=== PATIENT | male | born 1960 | race Caucasian/White ===

== ENCOUNTER 2025-07-28 23:49 | Emergency (ER) | payer MEDICARE, SELFPAY ==
--- NOTE | ~2025-07-28 | XR_ITS ---
EXAMINATION: XR hand RT min 3V DATE: 07/29/2025 00:05 INDICATION: Right hand injury with swelling at the fifth digit TECHNIQUE: Posteroanterior, oblique and lateral views of the right hand were obtained. COMPARISON: None. FINDINGS: Oblique diaphyseal fracture of the right fifth metacarpal with 3 mm radial and 5 mm proximal displacement. The fracture is mildly comminuted with additional mildly displaced small fragment fragment along the distal margin of the fracture. No other fractures identified. Otherwise normal alignment throughout the remainder of the right hand. Chondrocalcinosis in the region of the triangular fibrocartilage complex and at the third metacarpophalangeal joint where there is moderate osteoarthritis which suggests this could be secondary to calcium pyrophosphate deposition (CPPD) disease. Additional moderate osteoarthritis at the triscaphe, first carpal metacarpal, first interphalangeal and fourth and fifth distal interphalangeal joints and mild osteoarthritis at the wrist and many of the remaining metacarpophalangeal and interphalangeal joints. IMPRESSION: 1. Mildly displaced and mildly comminuted oblique extra articular fracture of the right fifth metacarpal diaphysis. 2. 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 Reviewed, dictated and finalized at location A. IMPRESSION: 1. Mildly displaced and mildly comminuted oblique extra articular fracture of t he right fifth metacarpal diaphysis. 2. 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
[2025-07-28 23:49] VITALS: BP 172/84; PULSE 78; RESP 18; TEMP 36.6; O2SAT 95
--- OUTSIDE RECORDS SUMMARY | 2025-07-28 23:51 | XMS_ITS | Clinical Summary ---
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 Active tiZANidine (ZANAFLEX) 2 mg tablet TK 1 T PO BID 2 8 Active cholecalciferol (VITAMIN D-3) 2,000 unit tablet Active esomeprazole DR (NexIUM) 20 mg capsule Take 1 capsule (20 mg total) by mouth daily before breakfast Active ibuprofen (ADVIL,MOTRIN) 400 mg tabletIndicatio ns:takes a couple times per week Take 1 tablet (400 mg total) by mouth every 8 (eight) hours as needed for pain Active lisinopriL (PRINIVIL,ZESTR IL) 40 mg tablet Take 1 tablet (40 mg total) by mouth daily 3 Active carvediloL (COREG) 25 mg tablet 1 tablet (25 mg total) 2 in the morning and 1 at night 3 Active hydrALAZINE (APRESOLINE) 50 mg tablet Take 2 tablets (100 mg total) by mouth 2 (two) times a day 4 Active metFORMIN (GLUCOPHAGE) 1,000 mg tablet Take 1 tablet (1,000 mg total) by mouth 4 Active OXcarbazepine (TRILEPTAL) 150 mg tablet Take 1 tablet (150 mg total) by mouth 2 (two) times a day 180 tablet 3 5 Active Active Problems Problem Noted Date Diagnosed Date Chronic bilateral low back pain with bilateral s ciatica 10/21/2018 Chronic use of opiate for therapeutic purpose Spinal stenosis of lumbar re gion with neurogenic claudication 10/21/2018 Postlaminectomy syndrome 10/21/2018 Encounters Date Type Department Care Team Description 06/14/2025 9:13 AM CDT - 06/14/2025 11:59 PM CDT Hospital Encounter [facility] [address] [place] [address] [place], [place] [id number] Antonina Goodamn MD Chronic bilateral low back pain with bilateral sciatica (Primary Dx); Spinal stenosis of lumbar region with neurogenic claudication; Postlaminectomy syndrome Discharge Disposition: Discharge to home or self care from Last 3 Months Surgical History Surgery Date Site/Laterality Comments THROAT SURGERY Throat Surgery - (Added by Conv) APPENDECTOMY Appendectomy - (Added by Conv) INGUINAL HERNIA REPAIR Inguinal Hernia Repair - (Added by TW Conv) BACK SURGERY Back Surgery - (Added by TW Conv) Medical History Medical History Date Comments Personal history of other di seases of the circulatory system History of hypertension - (A dded by TW Conv) Personal history of other en docrine, nutritional and metabolic disease History of hypothyro idism - (Added by TW Conv) Personal history of other di seases of the nervous system and sense organs History of neuropa thy - (Added by TW Conv) Hypertension GERD (gastroesophageal reflux disease) Hypothyroidism Arthritis Chronic pain Low back pain Family History Medical History Relation Name Comments Heart disease Father Heart Disease - (Added by TW Conv) Hypertension Father Benign [facility] Hypertension - (Added by TW Conv) Lung cancer Maternal Grandmother Carcino ma Of The Lung - (Added by TW Conv) Migraines Mother Common Migraine (Without Aura) - (Added by TW Conv) Pancreatic cancer Mother Carcinoma Of The Pancreas - (Added by TW Conv) Cancer Other 1 Cancer - (Added by TW Conv) Diabetes Other 2 Diabetes Mellit us - (Added by TW Conv) Heart disease Other 3 Heart Disease - (Added by TW Conv) Hypertension Other 4 Hypertension - (Added by TW Conv) Stroke Paternal Grandmother Stroke Syndrome - (Added by TW Conv) Migraines Sister 1 Common Migraine (Without Aura) - (Added by TW Conv) Migraines Sister 2 Common Migraine (Without Aura) - (Added by TW Conv) Relation Name Status Comments Father Maternal Grandmother Mother Other 1 Other 2 Other 3 Other 4 Paternal Grandmother Sister 1 Sister 2 Social History Tobacco Use Types Packs/Day Years Used Date Smoking Tobacco: Never Smokeless Tobacco: Never Tobacco Cessation:Counseling Given: Not Answered Alcohol Use Standard Drinks/Week Comments No 0 (1 standard drink = 0.6 oz pur e alcohol) AUDIT-C Answer Date Recorded Q1: How often do you have a drink containing alc ohol? Never 07/22/2024 Average Number of Drinks Not on file 024 Frequency of Binge Drinking Not on file 12/2023 Hunger Vital Sign Answer Date Recorded Within the past 12 months, y ou worried that your food would run out before you got the money to buy more. Never true 06/14/20 25 Within the past 12 months, t he food you bought just didn't last and you didn't have money to get more. 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 Gender Identity Not on file Sexual Orientation Not on file Obstetrics History Last Filed Vital Signs Vital Sign Reading Time Taken Comments Blood Pressure 162/78 06/14/2025 9:38 AM CDT Pulse 73 06/14/2025 9:38 AM CDT Temperature 36.5 C (97.7 F) 06/14/2025 9:38 AM CDT Respiratory Rate 14 06/14/2025 9:38 AM CDT Oxygen Saturation 95% 06/14/2025 9:38 AM CDT Inhaled Oxygen Concentration - - Weight 138.3 kg (305 lb) 06/30/2023 4:14 PM CDT Height 177.8 cm (5' 10) 06/30/2023 4:14 PM CDT Body Mass Index 43.76 06/30/2023 4:14 PM CDT Plan of Treatment Health Maintenance Due Date Last Done Comments Colon Cancer Screening-Colonoscopy 1962 Depression Screening 1962 Hepatitis C Screening 1962 Prostate Cancer Screening-PSA 1962 DTaP/Tdap/Td Vaccine (1 - Tdap) 1973 Hepatitis B Screening 1980 Regular Well Visit/Exam 18-64 1980 Zoster Vaccine (1 of 2) 2012 Influenza Vaccine (#1) 2025 Pneumococcal vaccine <65 Aged Out No longer eligible based on patient's age to complete this topic Goals Goal Patient Goal Type Associated Problems Recent Progress Patient-Stated? Author CCM Chronic Pain Care Plan Chronic Care Management No change(06/14 9:42 AM CDT) No Joan Carney RN Note: Problem: Chronic Pain Goals: 1. Minimize further functional decline 2. Maximize quality of life 3. Control pain Strategies: - Activity/exercise program recommendation - Conservative stepwise pain medicine strategy with multi-disciplinary approach - Recommend healthy lifestyle strategies and compensatory methods as needed Insurance COMMERCIAL GENERIC MEDICARE [facility] COMMERCIAL GENERIC COMMERCIAL GENERIC * Guarantor: OTHER Account Type Relation to Patient Date of Phone Billing Address Workers Comp Employer [employer] Care Teams Diesel Dinkey Operator Relationship Specialty Start Date End Date Jamar Tomlinson DO PCP - General Internal Medicine 06/14/25
--- OUTSIDE RECORDS SUMMARY | 2025-07-28 23:51 | XMS_ITS | Clinical Summary ---
Author Organization [facility] Address [address] [place] [id number] Care Team Providers Care Vehicle Dismantler Name Role Phone Unavailable Primary Care Provider Unavailabl e Social History Tobacco Use Types Packs/Day Years Used Date Smoking Tobacco: Never Assessed Sex and Gender Information Value Date Recorded Sex Assigned at Not on file Legal Sex Male 6:50 PM CDT Gender Identity Not on file Sexual Orientation Not on file Plan of Treatment Health Maintenance Due Date Last Done Comments Colorectal Cancer Screening Colonoscopy (10 Years) 1962 Annual Physical 1965 Hepatitis C 1980 DTaP, Tdap and Td Vaccines ( 1 - Tdap) 1981 Pneumococcal Vaccine: 50+ Ye ars (1 of 1 - PCV) 2012 Zoster Vaccines (1 of 2) 2012 COVID-19 Vaccine (1 - 2023-2 5 season) 2025 Influenza Adult (#1) 2025 RSV Immunization or 60+ Years (1 - 1-dose 75+ series) 2037 Meningococcal B Vaccine Aged Out No l onger eligible based on patient's age to complete this topic Meningococcal Vaccine Aged Out No jerilyn mukesh eligible based on patient's age to complete this topic RSV Immunizations Under 20 Months Aged Out No longer eligible based on patient's age to complete this topic
--- NOTE | 2025-07-29 00:18 | ED.UPPEXIN ---
HPI - Extremity Injury (Upper) General Chief Complaint: Extremity Injury, Upper Stated Complaint: wellness check Time Seen by Provider: 07/28/25 23:58 Source: patient and family Mode of arrival: ambulatory Limitations: no limitations History of Present Illness HPI narrative: this is a 64-year-old male with history of diabetes hypertension presents after he had a fall earlier today and causing pain and swelling to the lateral aspect of his right hand has a spry brisk radial pulse on the right with no numbness or tingling current pain level about a 5/10 with some good range of motion in his fingers although hand is limited secondary to pain and swelling. No other injuries noted except abrasions to the right knee area patient up-to-date with his tetanus. complaint: injury to: right Onset (ago): hour(s) Other Extremity Injury: Right: hand ( lateral swelling and bruising) Handedness: right Place: home Severity: moderate Severity scale (1-10): 5 Relieving factors: none Exacerbating factors: movement of extremity Associated symptoms: denies other symptoms Related Data Home Medications ?Medication ?Instructions ?Recorded ?Confirmed ?Last Taken ?Type esomeprazole magnesium 20 mg 20 mg PO DAILY 11/23/19 04/08/25 Unknown History capsule,delayed release (Nexium 24HR) oxcarbazepine 150 mg tablet 150 mg PO TID 11/23/19 04/08/25 Unknown History Allergies Allergy/AdvReac Type Severity Reaction Status Date / Time levetiracetam Allergy Severe suicidal Verified 04/08/25 14:35 dreams, depression topiramate Allergy Severe bad anxiety Verified 04/08/25 14:35 baclofen Allergy Mild Unknown Verified 04/08/25 14:35 Penicillins Allergy Mild Unknown Verified 04/08/25 14:35 pregabalin Allergy Mild hair loss, Verified 04/08/25 14:35 ringing in ears gabapentin AdvReac Mild weight gain Verified 04/08/25 14:35 Review of Systems Review of Systems: All systems reviewed & are unremarkable except as noted in HPI and below PMFSH Past Medical History Medical History Essential (primary) hypertension Type 2 diabetes mellitus Family History Family History Mother Family history of pancreatic cancer, Onset Age: 54 Patient's mother is Father Patient's father is Social History Social History Smoking status: Never smoker Second hand tobacco smoke exposure: No Alcohol intake: never Lack of Transportation: No Lack of Food: Never True Current Housing: I Have Housing Concerned About Future Housing: No Difficulty Paying Gas/Electric Bills: No Difficulty Paying for Meds: No Currently Unemployed: No Education: High School Diploma/GED Difficulty w/ Childcare or Family Care: No Exam Const: General: healthy appearing and no acute distress Nutritional Appearance: well nourished and obese Orientation/consciousness: patient oriented x3 Resp: Effort & Inspection: normal respiratory effort Auscultation: clear to auscultation bilaterally Cardio: Rate: regular rate Rhythm: regular rhythm GI: GI Palp: Yes Soft to palpation Auscultation: normal bowel sounds Skin: Wounds: wounds noted Other: Abrasions noted on his right knee Neuro: General: patient oriented x3 and moves all extremities Extrem: Other: lateral right hand swelling and tenderness Course Course Emergency Course: medical decision making narrative: The patient was evaluated via self in the emergency department. History obtained from patient who is an independent historian and physical exam performed in witnessed by nurse Samuels. External records were reviewed at this time. X-ray shows a displaced fracture of the 5th metacarpal on the right. OCL splint placed patient received Percocet p.o. for pain and advised to follow-up with his primary for referral to Ortho. Repeat assessment: Patient doing well on repeat exam with no acute distress Symptoms improved after OCL placement and Percocet given. Vital signs repeat are stable Patient agrees with discussion and after shared medical decision-making and agrees with the discharge and follow-up with primary for referral to Ortho. All questions answered to the patient's satisfaction. Vital Signs Vital signs: Vital Signs Temperature 36.6 C 07/28/25 23:49 Pulse Rate 78 07/28/25 23:49 Respiratory Rate 18 07/28/25 23:49 Blood Pressure 172/84 H 07/28/25 23:49 Pulse Oximetry 95 07/28/25 23:49 Oxygen Delivery Room Air 07/28/25 23:49 Temperature 36.6 C 07/28/25 23:49 Pulse Rate 78 07/28/25 23:49 Respiratory Rate 18 07/28/25 23:49 Blood Pressure 172/84 H 07/28/25 23:49 Pulse Oximetry 95 07/28/25 23:49 Oxygen Delivery Room Air 07/28/25 23:49 Critical Care Time Critical Care Time Critical Care Time: No Discharge Plan Discharge Clinical Impression: Fracture of hand Qualifiers: Encounter type: initial encounter Fracture type: closed Laterality: right Qualified Code(s): S62.91XA - Unspecified fracture of right hand, initial encounter for closed fracture Patient Disposition: Home Condition: Stable Instructions: Antibiotic Form, Hand Fracture (ED), Splint Care (ED) Additional Instructions: advised to take medication as prescribed and to follow with primary within the next day and refer to orthopedics. Patient Language: Faroese Prescriptions: New oxycodone-acetaminophen [Percocet] 5-325 mg tablet 1 tablet PO Q6H PRN (Reason: pain) Qty: 20 0RF No Action esomeprazole magnesium [Nexium 24HR] 20 mg capsule,delayed release(DR/EC) 20 mg PO DAILY oxcarbazepine 150 mg tablet 150 mg PO TID carvedilol 25 mg tablet 25 mg PO .COMPLEX Qty: 270 3RF Rx Instructions: Two po in AM; one in PM. hydralazine 100 mg tablet 100 mg PO BID Qty: 180 2RF dapagliflozin propanediol [Farxiga] 10 mg tablet 10 mg PO DAILY Qty: 90 1RF (DME) blood-glucose meter [OneTouch Ultra2 Meter] Kit See Rx Instructions .ROUTE .MEDSUPPLY Qty: 1 0RF Rx Instructions: As directed- test daily (DME) OneTouch Ultra Blue Test Strip Strip See Rx Instructions .ROUTE .MEDSUPPLY Qty: 50 3RF Rx Instructions: As directed- test daily levothyroxine 25 mcg tablet 25 mcg PO DAILY Qty: 90 3RF lisinopril 40 mg tablet 40 mg PO DAILY Qty: 90 3RF amitriptyline 25 mg tablet 75 mg PO .hs Qty: 270 2RF tizanidine 2 mg tablet See Rx Instructions .ROUTE .COMPLEX Qty: 180 0RF Dose Instruction: TAKE 1 TABLET BY MOUTH TWICE DAILY NEEDED FOR MUSCLE SPASMS Rx Instructions: TAKE 1 TABLET BY MOUTH TWICE DAILY NEEDED FOR MUSCLE SPASMS metformin 1,000 mg tablet 1,000 mg PO BIDWMEAL Qty: 180 2RF Follow-up/Referrals: Jamar Tomlinson DO [Primary Care Provider, Internal Medicine] Time of Disposition: 00:27
[2025-07-29] MEDS: oxyCODONE/ACETAMINOPHEN (*CRX) 5-325 MG TABLET 1 TABLET PO (00:35)
[2025-07-29 01:04] VITALS: BP 164/82; PULSE 82; RESP 18; O2SAT 100
== END 2025-07-29 01:04 | disposition home or self-care (01) ==
PROVIDERS: Emergency Provider Emergency Medicine; PCP Internal Medicine
DX: S62.91XA Unspecified fracture of right hand, initial encounter for closed fracture (principal); E11.9 Type 2 diabetes mellitus without complications; I10 Essential (primary) hypertension; W19.XXXA Unspecified fall, initial encounter
CPT/HCPCS: 29125; 73130; 99284; A9270